=== PATIENT | female | born 1990 | race Caucasian/White ===

== ENCOUNTER → 2024-05-14 10:28 | Outpatient (REF) | payer BC, SELFPAY | LOC: RAD 10:28 | PROVIDERS: ATTENDING PHYSICIAN Obstetrics & Gynecology | DX: Z31.41 Encounter for fertility testing (principal); N97.9 Female infertility, unspecified | CPT/HCPCS: 36415; 58340; 74740 ==

== ENCOUNTER → 2024-08-18 09:52 | Outpatient (REF) | payer BC, SELFPAY | LOC: WDC 09:52 | PROVIDERS: ATTENDING PHYSICIAN Physician Assistant Medical | DX: N63.12 Unspecified lump in the right breast, upper inner quadrant (principal); N64.3 Galactorrhea not associated with childbirth | CPT/HCPCS: 76642; 77062; 77066 ==

== ENCOUNTER → 2025-03-01 08:15 | Outpatient (REF) | payer BC, SELFPAY | LOC: WDC 08:15 | PROVIDERS: ATTENDING PHYSICIAN Surgery; FAMILY PHYSICIAN Physician Assistant | DX: N63.0 Unspecified lump in unspecified breast (principal); N63.11 Unspecified lump in the right breast, upper outer quadrant | CPT/HCPCS: 76642 ==

== ENCOUNTER → 2025-08-25 09:07 | Outpatient (REF) | payer BC, SELFPAY | LOC: WDC 09:07 | PROVIDERS: ATTENDING PHYSICIAN Physician Assistant Medical | DX: N63.20 Unspecified lump in the left breast, unspecified quadrant (principal); N63.12 Unspecified lump in the right breast, upper inner quadrant; N64.4 Mastodynia; R92.2 Inconclusive mammogram | CPT/HCPCS: 76642; 77062; 77066 ==